=== PATIENT | female | born 1995 | race Two or more races ===

== ENCOUNTER 2019-03-03 09:53 | Emergency (ER) | payer MEDICAID ==
--- NOTE | 2019-03-03 10:26 | EDM.PDOC ---
ED HPI GENERAL MEDICAL PROBLEM - General Chief Complaint: Cardiovascular Problem Stated Complaint: CHEST PAIN, SOB DOES HAVE STREP Time Seen by Provider: 03/03/19 10:15 Source of Information: Reports: Patient History Limitations: Reports: No Limitations - History of Present Illness INITIAL COMMENTS - FREE TEXT/NARRATIVE: Crystal comes to [facility] ED with sxs of chest pressure this am, significance unknown. She was diagnosed with Strept throat yesterday in the [facility], and prescribed PCN. She reports no sore throat, swollen lymph nodes, fever, chills, or sweats. There is no cough, SOB, palpitations, lt headiness or LOC. She does admit to being anxious since her brother was managed for complications of rheumatic fever. She is taking no other meds. Chest Pain Score (Numeric/FACES): 4 - Related Data Allergies Allergy/AdvReac Type Severity Reaction Status Date / Time No Known Allergies Allergy Verified 03/03/19 10:33 Home Meds: Home Meds Penicillin V Potassium 500 mg PO DAILY 03/03/19 [History] ED ROS GENERAL - Review of Systems Review Of Systems: See Below Constitutional: Reports: Malaise HEENT: Reports: No Symptoms Respiratory: Reports: No Symptoms Cardiovascular: Reports: Other (chest pressure) Endocrine: Reports: No Symptoms GI/Abdominal: Reports: No Symptoms : Reports: No Symptoms Musculoskeletal: Reports: No Symptoms Skin: Reports: No Symptoms Neurological: Reports: No Symptoms Psychiatric: Reports: Anxiety Hematologic/Lymphatic: Reports: No Symptoms Immunologic: Reports: No Symptoms ED EXAM, GENERAL - Physical Exam Exam: See Below Exam Limited By: No Limitations General Appearance: Alert, WD/WN, No Apparent Distress, Anxious Eye Exam: Bilateral Eye: EOMI, Normal Inspection, PERRL Ears: Normal External Exam, Normal TMs Nose: Normal Inspection Throat/Mouth: Normal Inspection, Normal Lips, Normal Teeth, Normal Gums, Normal Oropharynx, Normal Voice, No Airway Compromise Head: Normocephalic Neck: Normal Inspection, Supple, Non-Tender, Full Range of Motion Respiratory/Chest: No Respiratory Distress, Lungs Clear, Normal Breath Sounds, No Accessory Muscle Use, Chest Non-Tender Cardiovascular: Normal Peripheral Pulses, Regular Rate, Rhythm, No Murmur Back Exam: Normal Inspection Extremities: Normal Inspection Neurological: Alert, Oriented, CN II-XII Intact, Normal Cognition, Normal Gait, No Motor/Sensory Deficits Psychiatric: Normal Affect, Anxious Skin Exam: Warm, Dry, Intact, Normal Color, No Rash Lymphatic: No Adenopathy Course - Vital Signs Text/Narrative:: Crystal remained stable at the [facility] ED. A 12 lead ekg noted NSR without change. No meds were administered during ED visit. Last Recorded V/S: Last Vital Signs Temp 36.7 C 03/03/19 09:56 Pulse 94 03/03/19 09:56 Resp 18 03/03/19 09:56 BP 131/85 03/03/19 09:56 Pulse Ox 98 03/03/19 09:56 - Orders/Labs/Meds Orders: Active Orders 24 hr Category Date Time Status EKG Documentation Completion [RC] ASDIRECTED Care 03/03/19 10:20 Active EKG 12 Lead [EK] Routine Ther 03/03/19 10:19 Ordered Departure - Departure Time of Disposition: 11:00 Disposition: Home, Self-Care 01 Condition: Good Clinical Impression: Atypical chest pain Instructions: Generalized Anxiety Disorder, Adult Referrals: PCP,Not In Area [Primary Care Provider] - Forms: ED Department Discharge Additional Instructions: Follow up with your primary care doctor - Problem List & Annotations (1) Atypical chest pain SNOMED Code(s): 547354948 Code(s): R07.89 - OTHER CHEST PAIN Status: Acute Annotation/Comment:: Atypical chest pain, likely anxiety related. Reassurance given. - Problem List Review Problem List Initiated/Reviewed/Updated: Yes - My Orders Last 24 Hours: My Active Orders 03/03/19 10:19 EKG 12 Lead [EK] Routine 03/03/19 10:20 EKG Documentation Completion [RC] ASDIRECTED - Assessment/Plan Last 24 Hours: My Active Orders 03/03/19 10:19 EKG 12 Lead [EK] Routine 03/03/19 10:20 EKG Documentation Completion [RC] ASDIRECTED Plan: Follow up with PCP if needed.
== END 2019-03-03 11:10 | disposition home or self-care (01) ==
LOC: FB.ED 09:53
DX: R07.89 Other chest pain (principal); Z79.2 Long term (current) use of antibiotics; Z79.899 Other long term (current) drug therapy
CPT/HCPCS: 93005; 99284-25